=== PATIENT | male | born 1965 | race Hispanic/Latino ===

== ENCOUNTER 2018-03-22 08:25 | Day surgery (SDC) | payer OTHER ==
[2018-03-21 09:44] VITALS: BMI 30.1
[2018-03-22] MEDS ORDERED: Ondansetron HCl/PF 4 MG/2 ML Vial ONE (09:43)
[2018-03-22] MEDS ORDERED: PHENYLEPHRINE-NS 100 MCG/ML 10 ML SYRINGE ONE (09:43)
[2018-03-22] MEDS ORDERED: PROPOFOL 200 MG/20 ML VIAL ONE (09:43)
[2018-03-22] MEDS ORDERED: Lidocaine 1% PF 5 ML VIAL ONE (09:43)
[2018-03-22] MEDS ORDERED: Dexamethasone 20 MG/5 ML VIAL ONE (09:43)
[2018-03-22] MEDS ORDERED: Glycopyrrolate 0.2 MG/ML 5 ML SYRINGE ONE (09:43)
[2018-03-22] MEDS ORDERED: ePHEDrine/0.9% NaCl/PF SYRINGE 50 mg/10 ml ONE (09:43)
[2018-03-22] MEDS ORDERED: Fentanyl 100 MCG/2 ML VIAL ONE (10:14)
[2018-03-22] MEDS ORDERED: Midazolam HCl 2 mg/2 ml Vial ONE (10:14)
[2018-03-22] MEDS ORDERED: Lidocaine 1% w/Epinephrine 1:200K 30 ML VIAL ONE (10:41)
[2018-03-22] MEDS ORDERED: Ciprofloxacin 0.2% Otic ONE (10:41)
[2018-03-22] MEDS ORDERED: EPINEPHrine 1 MG/ML AMP ONE (10:41)
[2018-03-22] MEDS ORDERED: Bacitracin Zinc Ointment 30 gm TUBE ONE (10:41)
[2018-03-22] MEDS ORDERED: Morphine 4 MG/ML VIAL ONE (13:03)
[2018-03-22] MEDS ORDERED: HYDROcodone/Acetaminophen 5/325 mg Tablet ONE (13:22)
--- NOTE | 2018-03-22 17:20 | OP ---
PREOPERATIVE DIAGNOSIS: Right anterior large tympanic membrane perforation. POSTOPERATIVE DIAGNOSIS: Right anterior large tympanic membrane perforation. PROCEDURE PERFORMED: Right medial graft tympanoplasty using binocular microscopy with temporalis fas geovanny. PROCEDURE FINDINGS: Patient had a large dry anterior perforation approaching the annulus. PROCEDURE IN DETAIL: After consent was obtained, the patient was identified, brought to the operatin g room and placed on the operating table in supine position. General endotracheal anesthesia was obt ained. The patient was positioned for surgery. External canal was cleaned and injected with 1% lido milena 1:100,000 epinephrine as was the postauricular area. We then proceeded with beading around the tympanic membrane under microscopic visualization removing the marginal epithelium. Following this, we then turned our attention to the postauricular area where an incision was made and carried down t o the skin and subcutaneous tissues and temporalis fascia. We also at this point elevated the plane of dissection immediately posterior to the postauricular muscles. We then continued this dissection until the posterior canal skin was exposed. A periosteal flap was then elevated and raised and a tem poral fascial graft was harvested, removed and dried under a light lantern. We were then able to pat e relaxing incisions in the posterior canal skin and create a tympanomeatal flap. We then entered th e middle ear space and was able to [place] fashion our graft where it filled the defect and insulated anteriorly. We then filled the middle ear space with Gelfoam, treated with Ciprodex and support of t he graft medially and the tympanomeatal flap was then replaced and the external canal was filled with Gelfoam to create a sandwich effect on the graft and the residual tympanic membrane. The postauricu lar muscle and postauricular incision was closed in layers with Monocryl for the deep layers as was t he periosteal flap. The skin was closed with a 5-0 Prolene and the remainder of the ear canal was fi lled with Gelfoam. A sterile dressing was then applied as was a Belen dressing. The patient was awakened, extubated and taken to the recovery room and remained in stable condition prior to dischar ge home.
== END 2018-03-22 14:11 | disposition home or self-care (01) ==
LOC: SDC 08:25
PROVIDERS: ATTEND Specialist
PROC: 09U787Z Supplement Right Tympanic Membrane with Autologous Tissue Substitute, Via Natural or Artificial Opening Endoscopic (ICD-10-PCS; principal; 2018-03-22)
DX: H72.91 Unspecified perforation of tympanic membrane, right ear (principal); H91.90 Unspecified hearing loss, unspecified ear; R03.0 Elevated blood-pressure reading, without diagnosis of hypertension
CPT/HCPCS: 93005; 93010; 96374; J0171; J1100; J2001; J2250; J2270; J2405; J2704; J3010